=== PATIENT | male | born 1950 | race Hispanic/Latino ===

== ENCOUNTER 2025-04-02 08:56 | Outpatient (CLI) | payer BC | END 2025-04-02 08:57 | disposition home or self-care (01) | LOC: CSHRAD 08:56 | PROVIDERS: ATTEND Family Medicine | DX: J98.11 Atelectasis (principal); I51.7 Cardiomegaly; R91.8 Other nonspecific abnormal finding of lung field | CPT/HCPCS: 71046 ==